=== PATIENT | male | born 1990 | race Caucasian/White ===

== ENCOUNTER 2018-08-10 09:22 | Emergency (ER) | payer MEDICAID ==
--- NOTE | 2018-08-10 09:38 | EDPHY ---
H & P Time Seen by Provider: 08/10/18 09:31 HPI/ROS: CHIEF COMPLAINT: Dental pain HISTORY OF PRESENT ILLNESS: Patient is a 27-year-old man who had his wisdom teeth told recently. He had his right side done a week ago and his left side done few days ago. He states that he has developed significant pain on the right side of his jaw behind the mandible and into his right ear since having his wisdom teeth removed. He states that he has been back to his dentist 8 times and that they keep telling him it looks completely fine. They have started him on penicillin. He is taking ibuprofen at home for the pain. No fevers. No swelling. He has been able to eat without difficulty. He states that hurts more when he bends over and occasionally has ringing in his ears. No nausea vomiting. Severity: Moderate Modifying factors: Moderate improvement ibuprofen REVIEW OF SYSTEMS: Constitutional: denies: chills, fever, recent illness, recent injury EENTM: See HPI denies: blurred vision, double vision, nose congestion Respiratory: denies: cough, shortness of breath Cardiac: denies: chest pain, irregular heart rate, lightheadedness, palpitations Gastrointestinal/Abdominal: denies: abdominal pain, diarrhea, nausea, vomiting, blood streaked stools Genitourinary: denies: dysuria, frequency, hematuria, pain Musculoskeletal: denies: joint pain, muscle pain Skin: denies: lesions, rash, jaundice, bruising Neurological: denies: headache, numbness, paresthesia, tingling, dizziness, weakness Hematologic/Lymphatic: denies: blood clots, easy bleeding, easy bruising Immunologic/allergic: denies: HIV/AIDS, transplant 10 systems reviewed and negative except as noted EXAM: GENERAL: Well-appearing, well-nourished and in no acute distress. HEAD: Atraumatic, normocephalic. EYES: Pupils equal round and reactive to light, extraocular movements intact, sclera anicteric, conjunctiva are normal. ENT: Pain to right TMJ area and behind the mandible. No visible swelling. No deformity. No clicking or crepitus. TMs normal, nares patent, oropharynx clear without exudates. Moist mucous membranes. Headrick teeth removed. Healing well. No bleeding. No purulence. No intraoral swelling. NECK: Normal range of motion, supple without lymphadenopathy or JVD. LUNGS: Breath sounds clear to auscultation bilaterally and equal. No wheezes rales or rhonchi. HEART: Regular rate and rhythm without murmurs, rubs or gallops. ABDOMEN: Soft, nontender, normoactive bowel sounds. No guarding, no rebound. No masses appreciated. BACK: No CVA tenderness, no spinal tenderness, step-offs or deformities EXTREMITIES: Normal range of motion, no pitting or edema. No clubbing or cyanosis. NEUROLOGICAL: Cranial nerves II through XII grossly intact. Normal speech, normal gait. 5/5 strength, normal movement in all extremities, normal sensation , normal reflexes PSYCH: Normal mood, normal affect. SKIN: Warm, dry, normal turgor, no visible rashes or lesions. Source: Patient Exam Limitations: No limitations - Medical/Surgical History Hx Asthma: No Hx Chronic Respiratory Disease: No Hx Diabetes: No Hx Cardiac Disease: No Hx Renal Disease: No Hx Cirrhosis: No Hx Alcoholism: No Hx HIV/AIDS: No Hx Splenectomy or Spleen Trauma: No - Family History Significant Family History: No pertinent family hx - Social History Alcohol Use: Sober Drug Use: None Constitutional: Initial Vital Signs Temperature (C) 36.9 C 08/10/18 09:29 Heart Rate 96 08/10/18 09:29 Respiratory Rate 16 08/10/18 09:29 Blood Pressure 136/89 H 08/10/18 09:29 O2 Sat (%) 98 08/10/18 09:29 O2 Delivery Mode Room Air Allergies/Adverse Reactions: No Known Allergies Allergy (Verified 08/10/18 09:27) Home Medications: Medication Instructions Recorded Penicillin V Potassium [Penicillin 08/10/18 VK] Medical Decision Making ED Course/Re-evaluation: The patient has a completely normal ear and mouth exam. He has had pain ever since having his wisdom teeth removed. He has follow-up with his dentist several times and they have told him that all looks normal. They do have him on antibiotics. No clinical sign of abscess. No exam findings consistent with trauma. No fever. I will refer him to ENT. I encouraged him to keep taking ibuprofen for pain control. Differential Diagnosis: Partial list of the Differential diagnosis considered include but were not limited to; otitis media, TMJ dysfunction, dental abscess, dental carl and although unlikely based on the history and physical exam, I also considered fracture, salivary duct stone, vasculitis. I discussed these differential diagnoses and the plan with the patient as well as the usual and expected course. The patient understands that the diagnosis is provisional and that in medicine we are not always correct and that further workup is often warranted. Usual and customary warnings were given. All of the patient's questions were answered. The patient was instructed to return to the emergency department should the symptoms at all worsen or return, otherwise to followup with the physician as we discussed. - Data Points Medications Given: Discontinued Medications Ibuprofen (Motrin) 800 mg PO EDNOW ONE Stop: 08/10/18 09:47 Last Admin: 08/10/18 09:48 Dose: 800 mg Departure - Departure Disposition: Home, Routine, Self-Care Clinical Impression: Chronic dental pain Condition: Fair Instructions: Toothache (ED) Referrals: NONE *PRIMARY CARE P,. [Primary Care Provider] - As per Instructions Batool Graham PA [Physician Vocational Guidance Counselor] - 2-3 days, call for appt.
[2018-08-10 09:40] VITALS: BP 136/89
[2018-08-10] MEDS ORDERED: IBUPROFEN 800 MG TAB PO ONE (09:46)
== END 2018-08-10 09:45 | disposition home or self-care (01) ==
LOC: CED 09:22
DX: K08.89 Other specified disorders of teeth and supporting structures (principal)
CPT/HCPCS: 99282-ER